=== PATIENT | female | born 1985 | race African-American/Black ===

== ENCOUNTER → 2020-09-26 14:34 | Outpatient (CLI) | payer BC, SELFPAY ==
--- NOTE | ~2020-09-26 | US_ITS ---
EXAMINATION: US pelvic complete DATE: 09/26/2020 14:57 INDICATION: Abnormal uterine bleeding TECHNIQUE: Multiple transabdominal and endovaginal sonographic images of the pelvis were obtained. COMPARISON: None. FINDINGS: The uterus measures 11.5 x 5.3 x 6.4 cm. A 3.2 x 2.3 x 2.2 cm isoechoic area in the uterine fundus has the appearance of an intramural fibroid. The endometrial complex measures 3 mm. The right ovary measures 2.8 x 2.4 x 2.4 cm. The left ovary measures 2.2 x 1.5 x 2.4 cm. There is normal vascu lar flow in the ovaries. There is no free fluid in the pelvis. IMPRESSION: 1. No sonographic correlate for the patient's symptoms. Reviewed, dictated and finalized at location A.
== END ==
PROVIDERS: Visit Provider Obstetrics & Gynecology
DX: N93.9 Abnormal uterine and vaginal bleeding, unspecified (principal)
CPT/HCPCS: 76856

== ENCOUNTER → 2021-02-06 02:53 | Outpatient (CLI) | payer BC, SELFPAY ==
[2021-02-06 18:36] LABS: SARS-CoV-2 RNA PCR Negative
== END ==
PROVIDERS: Visit Provider Obstetrics & Gynecology Gynecology
DX: Z01.812 Encounter for preprocedural laboratory examination (principal); Z20.822 Contact with and (suspected) exposure to COVID-19
CPT/HCPCS: C9803; U0003; U0005

== ENCOUNTER 2021-02-06 09:19 | Outpatient (CLI) | payer BC, SELFPAY | END 2021-02-06 09:20 | disposition home or self-care (01) | PROVIDERS: Anesthesiology; Visit Provider Obstetrics & Gynecology Gynecology | DX: Z01.818 Encounter for other preprocedural examination (principal); D64.9 Anemia, unspecified | CPT/HCPCS: 36415; 85014; 85018 ==

== ENCOUNTER 2021-02-09 02:06 | Day surgery (SDC) | payer BC, SELFPAY ==
[2021-02-02 10:48] VITALS: BMI 34.7
--- NOTE | 2021-02-09 08:19 | WPDHPUPDATE1 ---
History and Physical Update Update Date/Time: 02/09/21 08:19 History and Physical has been reviewed, including an updated exam of the patient. There are NO changes in the patient's condition. Risks, benefits, and alternatives have been discussed and questions answered. Patient agrees to proceed with procedure.
--- NOTE | 2021-02-09 08:19 | PM.HPGS ---
History of Present Illness History of Present Illness Consent: Risks, benefits, and alternatives have been discussed and questions answered. Patient agrees to proceed with procedure. Chief complaint: Abnormal Uterine Bleeding Narrative: Cyndy Carlisle is a 35 year old female with a change in her menstrual cycle. Cycles have been every 2 to 3 weeks and heavy since approximately the past year. She was seen in September of 2020 and was recommended at that time to undergo workup. The patient did eventually schedule and presents today for D&C hysteroscopy. Patient was noted to be anemic at last check her hemoglobin was 9. Pelvic ultrasound performed in September reveals a 2x3cm intramural fibroid but the endometrial complex appears normal. Risks of infection, bleeding, and perforation were reviewed. Possible pathology was also discussed. The patient was understanding and agrees to proceed. Review of Systems Review of Systems: not repeated day of surgery; patient states no changes in status PMFSH Past Medical History Medical History (Updated 02/09/21 @ 08:26 by Rafaela Fenton MD) Asthma Migraine Obesity Spontaneous x 2 Type 2 diabetes mellitus Surgical History Surgical History (Updated 02/09/21 @ 08:25 by Rafaela Fenton MD) History of X3 Social History Social History Smoking status: Never smoker Alcohol intake: current Alcohol use details: 2-3 GLASSES OF WINE EVERY OTHER WEEK Substance use: never Substance use type: does not use Living arrangements: with family Spiritual care concerns: No Meds Home Medications and Allergies Home Medications Medication Instructions Recorded Confirmed Type albuterol sulfate [ProAir HFA] 2 puff INHALATION Q4H PRN 03/14/19 02/02/21 History ergocalciferol (vitamin D2) 1,250 mcg PO WEEKLY 02/02/21 02/09/21 History [Vitamin D2] ferrous sulfate 325 mg PO DAILY 02/02/21 02/09/21 History Allergies Allergy/AdvReac Type Severity Reaction Status Date / Time hydrocodone AdvReac DIZZINESS, Verified 02/09/21 08:06 ITCHING RASH Exam Const: General: comfortable and no acute distress : External Female Exam: normal external appearance Speculum Exam - Vagina: normal appearance of the vagina Speculum Exam - Cervix: normal appearance of the cervix Bimanual exam- vagina & uterus: enlarged (Approximately 12 weeks size) Bimanual Exam- Adnexa, other: normal adnexae Assessment and Plan Assessment and plan (1) Menorrhagia: Code(s): N92.0 - Excessive and frequent menstruation with regular cycle Status: Acute Assessment and Plan: Plan to proceed with D&C hysteroscopy
[2021-02-09 08:30] VITALS: BP 140/91; PULSE 85; RESP 16; TEMP 36.3; O2SAT 100
[2021-02-09] MEDS: LACTATED RINGERS 1,000 ML 30 ML IV CONT (08:37)
[2021-02-09] MEDS: ACETAMINOPHEN 500 MG TABLET 1000 MG PO (08:38)
--- NOTE | 2021-02-09 09:10 | P.PNAN_ITS ---
Anes - Initial Pre Proc Eval Procedure: Operation Date: 02/09/21 09:45 Proposed Procedures p Hysteroscopy, Dilation And Curettage With Possible Myosure - Rafaela Fenton MD Date/Time: 02/09/21 09:10 Surgeon: Rafaela Fenton MD Pre Op Diagnosis: Abnormal Uterine Bleeding Patient Data Age: 35 Gender: F Height: 1.57 m Weight: 86.8 kg Last Vital Signs Temp 36.3 C L 02/09/21 08:30 Pulse 85 02/09/21 08:30 Resp 16 02/09/21 08:30 BP 140/91 H 02/09/21 08:30 Pulse Ox 100 02/09/21 08:30 Allergies Allergy/AdvReac Type Severity Reaction Status Date / Time hydrocodone AdvReac DIZZINESS, Verified 02/09/21 08:06 ITCHING RASH Home Medications Medication Instructions Recorded Confirmed Type albuterol sulfate [ProAir HFA] 2 puff INHALATION Q4H PRN 03/14/19 02/02/21 History ergocalciferol (vitamin D2) 1,250 mcg PO WEEKLY 02/02/21 02/09/21 History [Vitamin D2] ferrous sulfate 325 mg PO DAILY 02/02/21 02/09/21 History Patient hx anesthesia problems: none Family hx anesthesia problems: none Results Review: All pre-operative results and documents have been reviewed as part of the pre-operative evaluation. [facility] Past Medical History Medical History Asthma Migraine Obesity Spontaneous x 2 Type 2 diabetes mellitus Surgical History Surgical History History of X3 Social History Social History Smoking status: Never smoker Alcohol intake: current Alcohol use details: 2-3 GLASSES OF WINE EVERY OTHER WEEK Substance use: never Substance use type: does not use Living arrangements: with family Spiritual care concerns: No Anes - Eval Final PreProcedure Day of Procedure 02/09/21 09:10 Patient weight: obese Heart: regular rate and rhythm Lungs: clear to auscultation Airway: Mallampati scale class II Neurological: alert and oriented Last oral intake: >/= 8 hours ASA classification: III Emergent: no Anesthetic plan: proceed Anesthesia type and monitoring: general GIVS and standard monitoring Results Review: All pre-operative results and documents have been reviewed as part of the pre-operative evaluation. Informed Consent: The patient's anesthetic plan and its attendant risks and benefits were discussed with the patient/family/POA. Questions were solicited and answers provided to the satisfaction of the patient/family/POA.
--- NOTE | 2021-02-09 10:08 | W.PM.PROC2 ---
Procedure Note - Detailed Date of Procedure 02/09/21 Pre-op Diagnosis Abnormal Uterine Bleeding Post-op Diagnosis same Procedure Performed D&C hysteroscopy with MyoSure resection of polyps Surgeon Rafaela Fenton MD Anesthesia MAC and local Findings Uterus sounds to 9cm there polyps noted posteriorly as well as near the cervical junction Description of Procedure The patient was taken to the operating room and placed under anesthesia in the dorsal lithotomy position. She was prepped and draped in usual sterile fashion. The bivalve speculum was placed in the vagina, cervix was grasped on the anterior lip with a tenaculum, and cervix is injected with 1% lidocaine. The uterus sounds to 9cm. Cervix is serially dilated with Hegar. The diagnostic hysteroscope was placed with the stated findings. The MyoSure device and scope were opened and placed. Under direct visualization the polyps are removed. Once the endometrium was smooth the hysteroscope was removed and the sharp curette is used to curette the endometrium until a good uterine cry was noted in all areas. All instruments are removed and the patient awakened from anesthesia and taken to recovery in stable condition. Sponge, needle, and instrument counts are correct per the OR staff. Estimated Blood Loss 5 Drains No Packing No Pathology yes (Endometrial shavings and curettings) Complications No immediate complications Condition stable Disposition PACU
[2021-02-09 10:10] VITALS: BP 113/66; PULSE 81; RESP 14; O2SAT 95
[2021-02-09 10:40] VITALS: BP 119/74; PULSE 82; RESP 16
== END 2021-02-09 11:00 | disposition home or self-care (01) ==
PROVIDERS: Visit Provider Obstetrics & Gynecology Gynecology
PROC: 0U5B8ZZ Destruction of Endometrium, Via Natural or Artificial Opening Endoscopic (ICD-10-PCS; CPT 58563; principal; 2021-02-09 09:45)
DX: N92.0 Excessive and frequent menstruation with regular cycle (principal); N84.0 Polyp of corpus uteri; D64.9 Anemia, unspecified; D25.1 Intramural leiomyoma of uterus; J45.909 Unspecified asthma, uncomplicated; E11.9 Type 2 diabetes mellitus without complications; E66.9 Obesity, unspecified; Z68.35 Body mass index [BMI] 35.0-35.9, adult
CPT/HCPCS: 58558; 88305; A9270; J2250; J2704; J3010; J7030; J7120

== ENCOUNTER 2022-04-22 11:30 | Outpatient (CLI) | payer BC, SELFPAY ==
--- NOTE | 2022-04-22 11:43 | ECG_ITS ---
Measurements Intervals [place] Rate: 73 P: 62 NH: 145 QRS: 22 QRSD: 84 T: 13 QT: 357 QTc: 394 Interpretive Statements SINUS RHYTHM NO PREVIOUS ECG AVAILABLE FOR COMPARISON Electronically Signed On 04-22-2022 16:07:21 [employer] REPAIRER by Aman Chapman M.D.
[2022-04-22 11:57] LABS: Hematocrit 34.3 % (37.0-47.0); Hemoglobin 11.1 g/dL (12.0-15.0)
== END 2022-04-22 11:31 | disposition home or self-care (01) ==
PROVIDERS: Anesthesiology; Visit Provider Obstetrics & Gynecology Gynecology
DX: D64.9 Anemia, unspecified (principal); I10 Essential (primary) hypertension; Z01.818 Encounter for other preprocedural examination
CPT/HCPCS: 36415; 85014; 85018; 93005

== ENCOUNTER 2022-04-26 02:08 | Day surgery (SDC) | payer BC, SELFPAY ==
[2022-04-16 13:52] VITALS: BMI 34.2
--- NOTE | 2022-04-16 14:12 | PC.NURSE ---
Report to the Outpatient Waiting Room, entrance under the green pavilion located off [facility], at time __7:00AM on date __04/26/22 . Planned Procedure Time: __9:00AM . Time changes happen often and if your time is changed the preop area will call you the afternoon before. - You and your visitor will be asked to self-screen and do not enter if you have any COVID symptoms. - Only one visitor is requested with a max of two and NO children visitors are allowed at this time. - The patient visitor may be requested to leave or wait in car when not with patient due to distancing restrictions. - A mask is optional within the hospital. Patients may have clear liquids (water, carbonated beverages, clear teas, apple juice) until 3 hours prior to surgery with a maximum of 20 ounces. - No food from midnight until time of surgery. Take the following medications with a SIP of water the morning of surgery: ___NONE Medications to discontinue per physician ___HOLD ALL VITAMINS/SUPPLEMENTS 3 DAYS PRE-OP Date to take last dose 04/22/22 Please no make-up, nail nepalese, hairspray, perfume, deodorant, or body powder the day of surgery. No jewelry (including any body piercings) or valuables the day of surgery, leave them at home. Please take a shower or bath the night before, or the morning of, surgery with an antibacterial soap. Wear comfortable, loose fitting clothing. Children are encouraged to wear pajamas. - Jewelry must be removed prior to entering the operating room. Rings and piercings that are not removed may be cut off. - The hospital will not accept responsibility for valuables. - Please leave all valuables, including medications, at home the day of surgery. If you are going home after surgery, a licensed steam train driver must drive you home. - NO public transportation without another adult if you receive anesthesia. - We recommend that an adult stay with you for 24 hours following discharge. - We also recommend that you do not drive, make important decision, drink alcoholic beverages, or take any drugs that were not prescribed by your health care provider for at least 24 hours after your discharge time. Follow any additional instructions given to you from your surgeon. If you or anyone in your household have experienced Covid symptoms in the past week, please notify your surgeon or the nurse liaison at the phone number below for possible testing. Telephone instructions given to __PATIENT and asked if any additional questions and then verbalized understanding. Patient advised to call surgeon office or pre surgery nurse liaison [phone] if any additional questions.
[2022-04-26] VITALS (9 sets, daily range): BP systolic 78–131; BP diastolic 49–84; PULSE 61–96; RESP 14–20; TEMP 36.1–36.7; O2SAT 100
--- NOTE | 2022-04-26 07:20 | WPDHPUPDATE1 ---
History and Physical Update Update Date/Time: 04/26/22 07:20 History and Physical has been reviewed, including an updated exam of the patient. There are NO changes in the patient's condition. Risks, benefits, and alternatives have been discussed and questions answered. Patient agrees to proceed with procedure.
--- NOTE | 2022-04-26 07:20 | PM.HPGS ---
History of Present Illness History of Present Illness Consent: Risks, benefits, and alternatives have been discussed and questions answered. Patient agrees to proceed with procedure. Chief complaint: menorrhagia, sterilization Narrative: Cyndy Carlisle is a 36 year old female with menorrhagia and completed childbearing. Patient underwent hysteroscopy D and C in February of 2021 with benign findings. She has been on several control pills since that time with variable success. She was decided to proceed with endometrial ablation. In addition she has completed her childbearing and wishes to proceed with sterilization. Risks of infection, bleeding perforation, injury to internal organs, tubal failure with increased ectopic if it fails, and general anesthesia are reviewed with the patient. Patient agrees to proceed. Review of Systems Review of Systems: not repeated day of surgery; patient states no changes in status PMFSH Past Medical History Medical History (Updated 04/26/22 @ 07:24 by Rafaela Fenton MD) Asthma Migraine Obesity Spontaneous x 2 Type 2 diabetes mellitus Surgical History Surgical History (Updated 04/26/22 @ 07:23 by Rafaela Fenton MD) History of X3 History of hysteroscopy Social History Social History Smoking status: Never smoker Alcohol intake: current Alcohol use details: 2-3 GLASSES OF WINE EVERY OTHER WEEK Substance use: never Substance use type: does not use Living arrangements: with family Additional living arrangements comments: HUSB, 3 CHILDREN Spiritual care concerns: No Meds Home Medications and Allergies Home Medications Medication Instructions Recorded Confirmed Type ergocalciferol (vitamin D2) 1,250 1,250 mcg PO WEEKLY 02/02/21 04/16/22 History mcg (50,000 unit) capsule (Vitamin D2) ferrous sulfate 325 mg (65 mg 325 mg PO DAILY 02/02/21 04/16/22 History iron) tablet ramipril 2.5 mg capsule (Altace) 5 mg PO BID 04/16/22 04/16/22 History Allergies Allergy/AdvReac Type Severity Reaction Status Date / Time hydrocodone Allergy DIZZINESS, Verified 04/16/22 13:48 ITCHING RASH Exam Const: General: healthy appearing and alert Orientation/consciousness: patient oriented x3 Resp: Effort & Inspection: normal respiratory effort GI: GI Palp: Yes Soft to palpation, No Tenderness to palpation present (GI) and No Palpable mass present : External Female Exam: normal external appearance Speculum Exam - Vagina: normal appearance of the vagina and normal vaginal discharge Speculum Exam - Cervix: normal appearance of the cervix Bimanual exam- vagina & uterus: uterine size normal and consistency normal Bimanual Exam- Adnexa, other: normal adnexae and No adnexal tenderness Neuro: General: patient oriented x3 Assessment and Plan Assessment and plan (1) Menorrhagia: Code(s): N92.0 - Excessive and frequent menstruation with regular cycle Status: Acute Assessment and Plan: plan to proceed with Macy endometrial ablation (2) Encounter for sterilization: Code(s): Z30.2 - Encounter for sterilization Status: Acute Assessment and Plan: plan to proceed with laparoscopic bilateral salpingectomies
--- NOTE | 2022-04-26 07:27 | P.PNAN_ITS ---
Anes - Initial Pre Proc Eval Procedure: Operation Date: 04/26/22 09:00 Proposed Procedures p Laparoscopic Bilateral Tubal Ligation with Fallopian Rings - Rafaela Fenton MD s Hysteroscopy with Macy Endometrial Ablation - Rafaela Fenton MD Date/Time: 04/26/22 07:27 Surgeon: Rafaela Fenton MD Pre Op Diagnosis: menorrhagia, sterilization Patient Data Age: 36 Gender: F Height: 1.57 m Weight: 85 kg Allergies Allergy/AdvReac Type Severity Reaction Status Date / Time hydrocodone Allergy DIZZINESS, Verified 04/16/22 13:48 ITCHING RASH Home Medications Medication Instructions Recorded Confirmed Type ergocalciferol (vitamin D2) 1,250 1,250 mcg PO WEEKLY 02/02/21 04/16/22 History mcg (50,000 unit) capsule (Vitamin D2) ferrous sulfate 325 mg (65 mg 325 mg PO DAILY 02/02/21 04/16/22 History iron) tablet ramipril 2.5 mg capsule (Altace) 5 mg PO BID 04/16/22 04/16/22 History Patient hx anesthesia problems: none Family hx anesthesia problems: none Results Review: All pre-operative results and documents have been reviewed as part of the pre- operative evaluation. [facility] Past Medical History Medical History Asthma Migraine Obesity Spontaneous x 2 Type 2 diabetes mellitus Surgical History Surgical History History of X3 History of hysteroscopy Social History Social History Smoking status: Never smoker Alcohol intake: current Alcohol use details: 2-3 GLASSES OF WINE EVERY OTHER WEEK Substance use: never Substance use type: does not use Living arrangements: with family Additional living arrangements comments: HUSB, 3 CHILDREN Spiritual care concerns: No Anes - Eval Final PreProcedure Day of Procedure 04/26/22 07:27 Patient weight: overweight Heart: regular rate and rhythm Lungs: clear to auscultation Airway: Mallampati scale class II Neurological: alert and oriented Last oral intake: >/= 8 hours ASA classification: II Emergent: no Anesthetic plan: proceed Anesthesia type and monitoring: general ETT and standard monitoring Results Review: All pre-operative results and documents have been reviewed as part of the pre- operative evaluation. Informed Consent: The patient's anesthetic plan and its attendant risks and benefits were discussed with the patient/family/POA. Questions were solicited and answers provided to the satisfaction of the patient/family/POA.
[2022-04-26] MEDS: ACETAMINOPHEN 500 MG TABLET 1000 MG PO (07:35)
[2022-04-26] MEDS: KETOROLAC 15 MG/ML VIAL (*BKC) IV PUSH (07:36)
[2022-04-26] MEDS: LACTATED RINGERS 1,000 ML 30 ML IV CONT ×2 (07:42→10:03)
[2022-04-26] MEDS: SCOPOLAMINE 1.5 MG PATCH TRANSDERM (07:47)
--- NOTE | 2022-04-26 09:53 | W.PM.PROC2 ---
Procedure Note - Detailed Date of Procedure 04/26/22 Pre-op Diagnosis menorrhagia, sterilization Post-op Diagnosis Same Procedure Performed Bilateral laparoscopic salpingectomy Macy endometrial ablation Surgeon Rafaela Fenton MD Anesthesia General Findings tubes and ovaries appear grossly normal; uterus appears enlarged; endometrium appears grossly normal and uterus sounds to 8cm Description of Procedure The patient was taken to the operating room and placed under anesthesia in the dorsal lithotomy position. The bladder was drained with a red rubber catheter. The bivalve speculum was placed in the vagina and the cervix grasped on the anterior lip with a tenaculum. The acorn manipulator was placed. The speculum was removed and the attention was turned to the abdomen. A horizontal skin incision was made at the base of the umbilicus. The abdomen is tented with towel clamps and the Veress needle placed. Opening patient pressure was 6mmHg and water drop test is normal. Pneumoperitoneum was obtained to a patient pressure of 15mmHg. The patient is placed in Trendelenburg and a 5mm port was placed 2cm above the symphysis pubis on the right. The 5mm ports are on back order therefore an 8mm port is placed 2cm above the symphysis pubis on the left. The blunt probe was used to bring the tubes into the visual field. The right tube was grasped with a grasper and using the 5mm LigaSure the mesial salpinx is cauterized and cut. The tube was crossclamped approximately 1cm from the cornua and removed. The identical procedure was performed on the left side. Good hemostasis is noted at both tubal sites. Pneumoperitoneum was reduced and the trocars are removed. Skin incisions were closed using 4 0 nylon in an interrupted fashion. Sterile bandages are applied. Attention was returned to the vagina where the bivalve speculum was replaced and the acorn manipulator is removed. The uterus is sounded to 8cm. The cervix is serially dilated to an 8 Hegar. The diagnostic hysteroscope was placed with the above-stated findings. Hysteroscope is removed and the Macy device is opened and placed with a setting of 5cm. The device would not read into the green window therefore the device was removed and reset for 4.5cm and replaced. The device was then in the green window and passed both cavity assessment on the 1st attempt. The treatment cycle lasted the full 2 minutes. The ablation device is removed and the hysteroscope was replaced. Good ablation effect is noted. All instruments are removed. The patient is awakened from anesthesia and taken to recovery in stable condition. Sponge, needle, and instrument counts are correct per the OR staff. Estimated Blood Loss 5 Drains No Packing No Pathology Yes ( Bilateral tubes) Complications No immediate complications Condition Stable Disposition PACU
[2022-04-26] MEDS: oxyCODONE HCL (*CRX) 5 MG TAB IR PO (11:22)
== END 2022-04-26 12:18 | disposition home or self-care (01) ==
PROVIDERS: Visit Provider Obstetrics & Gynecology Gynecology
PROC: (CPT 58671; principal; 2022-04-26 09:00)
PROC: 0U5B8ZZ Destruction of Endometrium, Via Natural or Artificial Opening Endoscopic (ICD-10-PCS; CPT 58563; 2022-04-26 09:00)
DX: N92.0 Excessive and frequent menstruation with regular cycle (principal); Z30.2 Encounter for sterilization
CPT/HCPCS: 58661; 58563; 88302; A9270; J1100; J1200; J1885; J2001; J2250; J2405; J2704; J3010; J7030; J7120